=== PATIENT | male | born 1935 | race Caucasian/White ===

== ENCOUNTER 2023-10-31 06:52 | Day surgery (SDC) | payer OTHER ==
[2023-10-25 15:50] VITALS: BMI 23.5
[2023-10-31] MEDS ORDERED: PROPOFOL 160 ML ONE (07:08)
[2023-10-31] MEDS ORDERED: LIDOCAINE HCL/PF 2% SDV 5ML VIAL ONE (07:08)
[2023-10-31 08:24] VITALS: TEMP 97.1
[2023-10-31 08:35] VITALS: BP 123/55; PULSE 60; RESP 18
== END 2023-10-31 08:43 | disposition home or self-care (01) ==
LOC: FASU-ENDO 06:52
PROVIDERS: ATTEND Internal Medicine Gastroenterology
PROC: 0DBN8ZX Excision of Sigmoid Colon, Via Natural or Artificial Opening Endoscopic, Diagnostic (ICD-10-PCS; 2023-10-31)
PROC: 0DB68ZX Excision of Stomach, Via Natural or Artificial Opening Endoscopic, Diagnostic (ICD-10-PCS; 2023-10-31)
PROC: 0DB78ZX Excision of Stomach, Pylorus, Via Natural or Artificial Opening Endoscopic, Diagnostic (ICD-10-PCS; 2023-10-31)
PROC: 0DBK8ZX Excision of Ascending Colon, Via Natural or Artificial Opening Endoscopic, Diagnostic (ICD-10-PCS; principal; 2023-10-31 07:42)
DX: D12.2 Benign neoplasm of ascending colon (principal); K63.5 Polyp of colon; K29.50 Unspecified chronic gastritis without bleeding; D17.5 Benign lipomatous neoplasm of intra-abdominal organs; K57.30 Diverticulosis of large intestine without perforation or abscess without bleeding; D50.9 Iron deficiency anemia, unspecified
CPT/HCPCS: 88305-TC; 88342-TC